=== PATIENT | male | born 1940 | race Caucasian/White ===

== ENCOUNTER 2022-02-03 16:17 | Emergency (ER) | payer MEDICARE, SELFPAY ==
[2022-02-03 16:20] VITALS: BP 162/72; PULSE 62; RESP 18; TEMP 36.6; O2SAT 94
[2022-02-03 17:19] LABS: Strep Group A RT-PCR Negative (Negative)
--- NOTE | 2022-02-03 17:21 | PC.NURSE ---
explained wait time related to covid testing. pt anxious and wanting to leave. explained again wait time til completion of testing. pt returned to room
[2022-02-03 17:32] LABS: Influenza A QL RT-PCR Negative (Negative); Influenza B QL RT-PCR Negative (Negative); SARS-CoV-2 RNA PCR Positive (Negative)
--- NOTE | 2022-02-03 17:49 | ED.URI ---
HPI - URI/Sore Throat General Chief Complaint: Upper Respiratory Infection Stated Complaint: fatigue, sore throat, runny nose Time Seen by Provider: 02/03/22 16:21 Source: patient and RN notes reviewed Mode of arrival: ambulatory Limitations: no limitations History of Present Illness MD elicited complaint: fever, cough and sore throat Onset (ago): day(s) (2) Consistency: progressively worsening Severity: mild Pain scale (0-10): 3 Able to tolerate fluids by mouth: Yes Exacerbating factors: nothing Relieving factors: nothing Associated symptoms: denies other symptoms Treatments prior to arrival: none Review of Systems Review of Systems: All systems reviewed & are unremarkable except as noted in HPI and below Constitutional: Constitutional: Reports no additional constitutional complaints Eyes: Eyes: Reports no additional eye complaints ENT: Reports system reviewed and no additional complaints, except as documented Cardiovascular: Cardiovascular: Reports no additional cardiovascular complaints Respiratory: Respiratory: Reports no additional respiratory complaints Gastrointestinal: Gastrointestinal: Reports no additional gastrointestinal complaints Musculoskeletal: Musculoskeletal: Reports no additional musculoskeletal complaints Integumentary/Breasts: Skin/Breast: Reports system reviewed and no additional complaints, except as docu Neurologic: Reports system reviewed and no additional complaints, except as documented Psychiatric: Psychiatric: Reports no additional psychiatric complaints Endocrine: Endocrine: Reports no additional endocrine complaints Hematologic/Lymphatic: Hematologic/Lymphatic: Reports no additional hematologic/lymphatic complaints Allergic/Immunologic: Allergic/Immunologic: Reports no additional allergic/immunologic complaints PMFSH Past Medical History Medical History COVID-19 Exam Const: General: no acute distress Nutritional Appearance: well nourished Orientation/consciousness: patient oriented x3 Limitations: no limitations HENMT: Head: normal to inspection Ears: external ears normal, TM's normal bilaterally and EAC's normal General nose exam: Normal external nose present and Normal nares present Face and sinus: normal facial exam and sinuses nontender Mouth: Yes Normal oral and palatal mucosa present and Yes moist mucous membranes Teeth and gingiva: dentition normal Other: mild pharyngeal redness Eyes: Conjunctivae: conjunctivae normal Pupils: Equal, round and reactive pupils present EOM: EOMs intact bilaterally Neck: Neck: normal visual inspection, no lymphadenopathy and no meningeal signs Chest: Chest palpation & inspection: normal inspection of the chest Resp: Effort & Inspection: normal respiratory effort Auscultation: clear to auscultation bilaterally Cardio: Rate: regular rate Rhythm: regular rhythm GI: GI Palp: Yes Soft to palpation and No Tenderness to palpation present (GI) Auscultation: normal bowel sounds : General: Yes bladder normal to palpation and Yes no CVA tenderness Back/Spine/Pelvis: Back: no CVA tenderness Skin: General skin exam: normal color Rashes: no rashes Wounds: no wounds Neuro: General: patient oriented x3, moves all extremities, no meningeal signs, no focal motor deficits and CN's II-XI intact bilaterally Cranial nerves: Yes Equal, round and reactive pupils present and Yes Nystagmus not present Speech: normal speech Gait exam (Neuro): Normal gait present Extrem: General: normal to inspection and no pedal edema Psych: Mental Status: mental status grossly normal Affect: normal affect Attitude: cooperative Course Course Emergency Course: stable pt, less painful. Reevaluation(s) Reevaluation #1: VSS Date: 02/03/22 Time: 16:58 Vital Signs Vital signs: Vital Signs Temperature 36.6 C 02/03/22 16:20 Pulse Rate 62 02/03/22 16:20 Respiratory Rate 18 02/03/22
--- NOTE | 2022-02-03 17:53 | PC.NURSE ---
pt remains asymptomatic , no fever, no cough, no respiratory distress.
== END 2022-02-03 18:00 | disposition home or self-care (01) ==
PROVIDERS: Emergency Provider Emergency Medicine
DX: U07.1 COVID-19 (principal); B34.9 Viral infection, unspecified
CPT/HCPCS: 87502; 87651; 99283; C9803; U0003; U0005

== ENCOUNTER 2023-05-02 12:11 | Emergency (ER) | payer MEDICARE, SELFPAY ==
[2023-05-02] VITALS (20 sets, daily range): BP systolic 135–190; BP diastolic 71–120; PULSE 48–74; RESP 14–26; TEMP 36.3; O2SAT 91–97
--- NOTE | ~2023-05-02 | XR_ITS ---
XR chest 1V portable 05/02/2023 13:40 Indication: Shortness of breath Procedure: AP portable chest Comparison: No prior studies for comparison. Findings: Status post median sternotomy for CABG. Cardiomegaly. Mild interstitial edema. No pleural e ffusion or pneumothorax. Impression: 1: Cardiomegaly with interstitial edema. Reviewed, dictated and finalized at location B. ISSIONS ANALYST Impression: 1: Cardiomegaly with interstitial edema.
--- NOTE | ~2023-05-02 | CT_ITS ---
EXAMINATION: CT brain wo con DATE: 05/02/2023 13:39 INDICATION: Dizziness. Headache. TECHNIQUE: Computed tomography (CT) of the head was performed without intravenous contrast. The dose- length product was 681.00 mGy-cm. Automated exposure control and iterative reconstruction technique w ere employed. COMPARISON: None FINDINGS: Brain parenchymal volume is decreased. There are scattered moderate periventricular and sub cortical white matter changes, most likely related to small vessel ischemic disease (microangiopathy) . No ventriculomegaly or midline shift. No acute intracranial hemorrhage, infarction, mass or mass ef fect. There is intracranial atherosclerosis. Paranasal sinuses and mastoids are pneumatized. No depre ssed skull fractures. There is a small extra-axial calcification along the left tentorium which may r epresent a small meningioma. No mass effect. IMPRESSION: 1. No acute intracranial abnormality. Reviewed, dictated and finalized at location B. 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
--- NOTE | 2023-05-02 12:50 | ECG_ITS ---
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
--- NOTE | 2023-05-02 12:52 | ED.DIZZY ---
HPI - Dizziness General Chief Complaint: Dizziness Stated Complaint: weakness Time Seen by Provider: 05/02/23 12:20 Source: patient Mode of arrival: ambulatory Limitations: no limitations History of Present Illness HPI Narrative: Patient is an 82 year old male with a significant PMH that presents today for dizzness. Patient states he woke up this morning and had dizziness. He was getting out of bed and says that he sat up and felt dizziness. He felt like the room was spinning. He says he has never had dizziness in the past. He does have an extensive heart history. He has a hx of a CABG and hx of afib. His afib is apparently controlled without medication. He does take eliquis for a blood thinner. He denies any SOB or chest pain. MD elicited complaint: dizziness and lightheadedness Onset (ago): hour(s) Timing: sudden onset Severity: mild Description: room spinning Context: change in body position History of similar symptoms: No Exacerbating factors: nothing Relieving factors: remaining still Associated symptoms: denies other symptoms Stroke scale total: 0 Related Data Home Medications Medication Instructions Recorded Confirmed apixaban 5 mg tablet (Eliquis) 5 mg PO BID 05/02/23 05/02/23 finasteride 5 mg tablet 5 mg PO DAILY 05/02/23 05/02/23 rosuvastatin 20 mg tablet 20 mg PO DAILY 05/02/23 05/02/23 sertraline 100 mg tablet 100 mg PO DAILY 05/02/23 05/02/23 solifenacin 10 mg tablet 10 mg PO DAILY 05/02/23 05/02/23 tamsulosin 0.4 mg capsule 0.4 mg PO DAILY 05/02/23 05/02/23 Allergies Allergy/AdvReac Type Severity Reaction Status Date / Time No Known Allergies Allergy Verified 05/02/23 12:50 Review of Systems Review of Systems: All systems reviewed & are unremarkable except as noted in HPI and below Constitutional: Constitutional: Reports as per HPI Eyes: Eyes: Reports no additional eye complaints ENT: Reports system reviewed and no additional complaints, except as documented Cardiovascular: Cardiovascular: Reports no additional cardiovascular complaints Respiratory: Respiratory: Reports no additional respiratory complaints Gastrointestinal: Gastrointestinal: Reports no additional gastrointestinal complaints Genitourinary: Genitourinary: Reports no additional male genitourinary complaints Musculoskeletal: Musculoskeletal: Reports no additional musculoskeletal complaints Integumentary/Breasts: Skin/Breast: Reports system reviewed and no additional complaints, except as docu Neurologic: Reports dizziness Psychiatric: Psychiatric: Reports no additional psychiatric complaints Endocrine: Endocrine: Reports no additional endocrine complaints Hematologic/Lymphatic: Hematologic/Lymphatic: Reports no additional hematologic/lymphatic complaints PMFSH Past Medical History Medical History COVID-19 Exam Const: General: healthy appearing Nutritional Appearance: well nourished Orientation/consciousness: patient oriented x3 HENMT: Head: normal to inspection Ears: TM's normal bilaterally Face/Nose/Sinus: Normal external nose present Face and sinus: normal facial exam Mouth: Yes Normal oral and palatal mucosa present Eyes: Conjunctivae: conjunctivae normal Pupils: Equal, round and reactive pupils present EOM: EOMs intact bilaterally Neck: Neck: normal visual inspection Chest: Chest palpation & inspection: normal inspection of the chest Resp: Effort & Inspection: normal respiratory effort Auscultation: clear to auscultation bilaterally Cardio: Rate: bradycardic Rhythm: abnormal rhythm Heart sounds: Murmur heart sound present systolic GI: Inspection: distended GI Palp: Yes Hernia present and Yes Palpable mass present Auscultation: normal bowel sounds Back/Spine/Pelvis: Back: no CVA tenderness Skin: General skin exam: normal color Rashes: no rashes Neuro: General: patient oriented x3 Cranial nerves: Yes Nystagmus not present Speech: no
[2023-05-02 13:10] LABS: Basophils Absolute Auto 0.02 K/mm3 (0.00-0.10); Basophils Percent Auto 0.3 % (0.0-1.0); Eosinophils Absolute Auto 0.06 K/mm3 (0.02-0.50); Hematocrit 43.4 % (37.0-46.0); Hemoglobin 14.1 g/dL (12.4-15.3); Immature Granulocyte Absolute 0.04 K/mm3 (0.00-0.00); Immature Granulocyte Percent A 0.7 % (0.0-0.0); Lymphocytes Absolute Auto 0.66 K/mm3 (1.10-4.50); Lymphocytes Percent Auto 10.8 % (18.0-42.0); Mean Corpuscular HGB Conc 32.5 g/dL (32.0-36.0); Mean Corpuscular Hemoglobin 30.8 pg (27.0-31.0); Mean Corpuscular Volume 94.8 fL (78.0-102.0); Monocytes Absolute Auto 0.42 K/mm3 (0.10-0.90); Monocytes Percent Auto 6.9 % (2.0-11.0); Neutrophils Absolute Auto 4.9 K/mm3 (1.7-7.2); Neutrophils Percent Auto 80.3 % (50.0-70.0); Platelet Count Result 148 K/mm3 (150-420); Red Blood Count 4.58 M/mm3 (4.70-6.10); Red Cell Distribution Width 13.5 % (11.6-14.4); White Blood Count 6.1 K/mm3 (4.8-10.8)
[2023-05-02 13:25] LABS: INR 1.1; Partial Thromboplastin Time 31.4 SEC (23.90-30.70); Prothrombin Time 12.1 Seconds (9.50-12.10)
[2023-05-02] MEDS: MECLIZINE HCL 25 MG TABLET 50 MG PO (13:25)
[2023-05-02 13:30] LABS: Lactic Acid Reflex 1.6 mmol/L (0.4-2.0)
[2023-05-02 13:32] LABS: Alanine Aminotransferase 28 U/L (16-63); Albumin Level 3.6 g/dL (3.4-5.0); Alkaline Phosphatase 116 U/L (46-116); Anion Gap 5 mmol/L (8-16); Aspartate Amino Transferase 23 U/L (15-37); Bilirubin,Total 0.8 mg/dL (0.00-1.00); Blood Urea Nitrogen 13 mg/dL (7-18); Calcium 8.8 mg/dL (8.5-10.1); Carbon Dioxide 28 mmol/L (21-32); Chloride 101 mmol/L (98-108); Estimated Glomerular Filt Rate > 60; Glucose 123 mg/dL (70-99); Magnesium 1.7 mg/dL (1.8-2.4); NT Pro B Type Natriuretic Pept 2196 pg/mL (0-450); Osmolality Calculated 279 mOsm/kg (285-295); Sodium 134 mmol/L (136-145); Total Protein 7.4 g/dL (6.4-8.2); Troponin I 36.6 ng/L (0.00-60.4)
[2023-05-02] MEDS: FUROSEMIDE INJ 40 MG/4 ML VIAL IV PUSH (14:55)
[2023-05-02] MEDS: MAGNESIUM SULF 2 GM/WATER 50ML 2 GM/50 ML BAG IVPB (14:57)
[2023-05-02] MEDS: ONDANSETRON INJ 4 MG/2 ML VIAL IV PUSH (14:58)
--- NOTE | 2023-05-02 15:02 | PC.NURSE ---
1450 pt standing to attempt to urinate, continues with dizziness. nauseated. dr lara notified. zofran order . 1503 pt states dry heeves, nausea subsided. dr lara in with pt discussing plan of care.
--- NOTE | 2023-05-02 15:20 | PC.NURSE ---
dr lara speaking with daughter jaquan ren on phone. pt insistant on going home after discussing plan of care with pt
[2023-05-02 15:53] LABS: Appearance Urine Clear (Clear); Bilirubin Urine Negative (Negative); Blood Urine Negative (Negative); Color Urine Light Yellow (Yellow); Glucose Urine UA Negative (Negative); Ketones Urine Negative (Negative); Leukocyte Esterase Ur Negative LEU/UL (Negative); Nitrate Urine Negative (Negative); Protein Urine Negative (Negative); Specific Grav Ur 1.015 (1.010-1.020); Urobilinogen Urine 0.2 mg/dL (0.2-1.0); pH Urine 6.5 (5.0-8.0)
[2023-05-02 16:29] LABS: Add Urine Microscopic? NO
== END 2023-05-02 15:49 | disposition home or self-care (01) ==
PROVIDERS: Emergency Provider Family Medicine
DX: H81.10 Benign paroxysmal vertigo, unspecified ear (principal); I50.9 Heart failure, unspecified; I48.91 Unspecified atrial fibrillation; Z79.01 Long term (current) use of anticoagulants; Z79.899 Other long term (current) drug therapy
CPT/HCPCS: 36415; 70450; 71045; 80053; 81003; 83605; 83735; 83880; 84484; 85025; 85380; 85610; 85730; 93005; 96365; 96375; 99284; A9270; J1940; J2405; J3475

== ENCOUNTER 2023-05-07 15:39 | Outpatient (RCR) | payer MEDICARE, SELFPAY ==
--- NOTE | 2023-05-07 17:04 | OPREHPOC ---
Outpatient Therapy Plan of Care This is a Multidisciplinary Plan of Care that may contain components documented by all disciplines (PT, OT, and ST.) PT Problem 1 PT Problem #1 Knowledge Deficit PT Goal 1 Goal 1. independent and compliant with HEP Target Visit 6 PT Problem 2 PT Problem #2 Impaired Functional Mobil PT Goal 1 Goal 1. no nystagmus or vertigo symptoms 2. 5x sit to stand to be performed in under 12 seconds with safe hand use 3. tinetti to display moderate fall risk or less 4. tug to be performed with least restrictive AD in 12 seconds or less 5. no falls reported Target Visit 12
--- NOTE | 2023-05-07 17:05 | PTOPEVAL1 ---
Assessment and note entered by JT File, PT Evaluation Information Assessment Status Evaluation Diagnosis vertigo, BPPV Onset 05/02/23 Subjective Information patient reports he woke up sander morning and was dizzy when he sat up. he reports he felt like he was drunk. he reports leaning side to side made it worse. he reports he had to use the zurita to walk to the restroom. he reports he has symptoms mostly now when getting up. he reports no symptoms with sitting. he reports he wnet to the ER for evalaution as he thought he was having a stroke. they worked him up and determined it was BPPV. he was sent home with meclizine with a referal to PCP to see PT. he reports he has been taking meclizine. he reports he is using a walker now which he was not using prior to his balance deficits. Reported Pain Level Pain Score 0: Self Report Assessment PT Clinical Summary mr. louise is an 82 yo man who presents to skilled PT services for evaluation and treatment of vestibular deficits/positional vertigo. patient was found to have no symptoms of BPPV today, but does display high fall risk per the 5x sit to stand, TUG, and the tinetti. he is on meclizine which may be maksing his vertigo symptoms. however , at this time, suggest patient continue skilled PT for unsteady balance and gait to improve his quality of life and decrease falls/risk of injury. Plan of Care Interventions Gait Training,Neuro Re-education,Patient/Caregiver Educati,Therapeutic Activities,Therapeutic Exercise PT Services Indicated Yes Treatment Frequency and 3x weekly for 12 visits Duration These treatments will address the objective and functional deficits as defined above. The patient will be advanced safely and appropriately in order for the patient to progress towards his/her prior level of function. Additional exercises will be introduced and as well as a comprehensive home exercise program upon discharge, if needed, ?to ensure carryover of functional gains achieved in the clinic. This treatment plan has been reviewed and agreement upon by the patient.
--- NOTE | 2023-06-06 13:50 | OPREHPOC ---
Outpatient Therapy Plan of Care This is a Multidisciplinary Plan of Care that may contain components documented by all disciplines (PT, OT, and ST.) PT Problem 1 PT Problem #1 Knowledge Deficit PT Goal 1 Goal 1. independent and compliant with HEP Target Visit 6 Progress Met PT Problem 2 PT Problem #2 Impaired Functional Mobil PT Goal 1 Goal 1. no nystagmus or vertigo symptoms. partially met 2. 5x sit to stand to be performed in under 12 seconds with safe hand use. met for time, but not safety 3. tinetti to display moderate fall risk or less. met 4. tug to be performed with least restrictive AD in 12 seconds or less. met 5. no falls reported. met Target Visit 12 Progress Partially Met
--- NOTE | 2023-06-06 13:52 | PTOPPROGNS ---
Assessment and note entered by JT File, PT Evaluation Information Assessment Status Progress Diagnosis vertigo, BPPV Onset 05/02/23 Subjective Information patient reports he feels a bit sluggish today. he reports he has low energy today. Assessment PT Clinical Summary mr. louise presents to skilled PT for his 10th skilled therapy visit today. he had no nystagmus at his last therapy visit. he displays improved time and balance on the TUG and tinetti. however, he continues to be unsafe with final transfer on 5x sit to stand test. he would benefit from continued skilled PT to address his remaining balance and safety deficits to achieve full goals for skilled PT. Plan of Care Interventions Gait Training,Neuro Re-education,Patient/Caregiver Educati,Therapeutic Activities,Therapeutic Exercise PT Services Indicated Yes Treatment Frequency and continue skilled PT per initial POC Duration These treatments will address the objective and functional deficits as defined above. The patient will be advanced safely and appropriately in order for the patient to progress towards his/her prior level of function. Additional exercises will be introduced and as well as a comprehensive home exercise program upon discharge, if needed, ?to ensure carryover of functional gains achieved in the clinic. This treatment plan has been reviewed and agreement upon by the patient.
--- NOTE | 2023-06-13 08:43 | PTOPDC ---
Assessment and note entered by JT File, PT Evaluation Information Assessment Status Discharge Diagnosis vertigo, BPPV Onset 05/02/23 Subjective Information patient reports he feels good today. he reports from time to time he still gets dizziness. he reports he has had no falls. he reports he is ready to be done with therapy. Reported Pain Level Pain Score 0: Self Report Assessment PT Clinical Summary mr. louise presents to skilled PT for his 12th skilled therapy visit today. as of this date, his therapy has consisted mostly of strengthening exercises, balance/proprioception activities, and the occassional CR for vertigo. his vertigo symptoms are inconsistent, and are not currently present. he has met nearly all goals for skilled PT as of this date. he will DC skilled PT, and continue with HEP independent at home. Plan of Care PT Services Indicated Yes
== END 2023-06-11 15:13 | disposition home or self-care (01) ==
LOC: CHSPT 15:39
DX: H81.13 Benign paroxysmal vertigo, bilateral (principal)
CPT/HCPCS: 95992; 97110; 97112; 97150; 97161; 97530

== ENCOUNTER 2023-10-25 16:40 | Emergency (ER) | payer MEDICARE, SELFPAY ==
[2023-10-25 16:40] VITALS: BP 154/92; PULSE 73; RESP 18; TEMP 36.3; O2SAT 93
--- NOTE | 2023-10-25 16:53 | ED.EAR ---
HPI - Ear Problem General Chief complaint: Ear Stated complaint: ringing in ears Time Seen by Provider: 10/25/23 16:50 Source: patient Mode of arrival: ambulatory Limitations: no limitations History of Present Illness HPI Narrative: 82-year-old male with a history CAD status post CABG, CHF, atrial fibrillation, dyslipidemia,, benign positional vertigo presents to the ER with -- tinnitus in both ears for close to an Ear. Patient has mildly decreased hearing. The patient has a history of benign positional vertigo for which he is on meclizine. the tinnitus gets extremely loud at times and resolved spontaneously no ear infection. No ear discharge. The patient does not have any focal neuro deficits. No fever or chills no upper respiratory symptoms MD Complaint: other ( tinnitus) Location: bilateral Duration: intermittent Severity: severe Relieving factors: nothing Exacerbating factors: nothing Discharge from ear: Reports no Associated symptoms ear: tinnitus Treatment prior to arrival: none Related Data Home Medications Medication Instructions Recorded Confirmed apixaban 5 mg tablet (Eliquis) 5 mg PO BID 05/02/23 05/02/23 finasteride 5 mg tablet 5 mg PO DAILY 05/02/23 05/02/23 rosuvastatin 20 mg tablet 20 mg PO DAILY 05/02/23 05/02/23 sertraline 100 mg tablet 100 mg PO DAILY 05/02/23 05/02/23 solifenacin 10 mg tablet 10 mg PO DAILY 05/02/23 05/02/23 tamsulosin 0.4 mg capsule 0.4 mg PO DAILY 05/02/23 05/02/23 Allergies Allergy/AdvReac Type Severity Reaction Status Date / Time No Known Allergies Allergy Verified 05/02/23 12:50 Review of Systems Review of Systems: All systems reviewed & are unremarkable except as noted in HPI and below Constitutional: Constitutional: Reports as per HPI and Reports no additional constitutional complaints Eyes: Eyes: Reports as per HPI and Reports no additional eye complaints ENT: Reports system reviewed and no additional complaints, except as documented and Reports as per HPI Comments: patient has decreased hearing. Vertigo and tinnitus Cardiovascular: Cardiovascular: Reports as per HPI and Reports no additional cardiovascular complaints Respiratory: Respiratory: Reports as per HPI and Reports no additional respiratory complaints Gastrointestinal: Gastrointestinal: Reports as per HPI and Reports no additional gastrointestinal complaints Genitourinary: Genitourinary: Reports no additional male genitourinary complaints and Reports as per HPI Musculoskeletal: Musculoskeletal: Reports no additional musculoskeletal complaints and Reports as per HPI Integumentary/Breasts: Skin/Breast: Reports system reviewed and no additional complaints, except as docu and Reports as per HPI Neurologic: Reports system reviewed and no additional complaints, except as documented and Reports as per HPI Psychiatric: Psychiatric: Reports no additional psychiatric complaints and Reports as per HPI Endocrine: Endocrine: Reports no additional endocrine complaints and Reports as per HPI Hematologic/Lymphatic: Hematologic/Lymphatic: Reports no additional hematologic/lymphatic complaints and Reports as per HPI Allergic/Immunologic: Allergic/Immunologic: Reports no additional allergic/immunologic complaints and Reports as per HPI [facility] [place] Past Medical History Medical History (Updated 10/25/23 @ 17:28 by Elian Krishnan MD) Atrial fibrillation CAD (coronary artery disease) CHF (congestive heart failure) COVID-19 Dyslipidemia Surgical History Surgical History (Updated 10/25/23 @ 17:23 by Elian Krishnan MD) Failed CABG (coronary artery bypass graft) Exam Narrative: blood pressure 154/92 Const: General: no acute distress Nutritional Appearance: well nourished Orientation/consciousness: patient oriented x3 Limitations: no limitations HENMT: Head: normal to inspection Ears: external ears normal Face/Nose/Sinus: Normal external nose present Face and sinus: normal facia
== END 2023-10-25 17:34 | disposition home or self-care (01) ==
LOC: CHSED 17:33
PROVIDERS: Emergency Provider Internal Medicine Critical Care Medicine
DX: H93.13 Tinnitus, bilateral (principal); I25.10 Atherosclerotic heart disease of native coronary artery without angina pectoris; I50.9 Heart failure, unspecified; I48.91 Unspecified atrial fibrillation; E78.5 Hyperlipidemia, unspecified; Z95.1 Presence of aortocoronary bypass graft; H81.10 Benign paroxysmal vertigo, unspecified ear; Z79.01 Long term (current) use of anticoagulants
CPT/HCPCS: 99281

== ENCOUNTER 2023-12-09 14:56 | Outpatient (RCR) | payer MEDICARE, SELFPAY ==
--- NOTE | 2023-12-09 16:06 | OPREHPOC ---
Outpatient Therapy Plan of Care This is a Multidisciplinary Plan of Care that may contain components documented by all disciplines (PT, OT, and ST.) PT Problem 1 PT Problem #1 Knowledge Deficit PT Goal 1 Goal 1. independent and compliant with HEP Target Visit 6 PT Problem 2 PT Problem #2 Impaired Strength PT Goal 1 Goal 1. 5/5 bilateral hip strength 2. 5/5 bilateral knee strength 3. 5/5 bilateral ankle strength Target Visit 12 PT Problem 3 PT Problem #3 Impaired Balance PT Goal 1 Goal 1. 5x sit to stand to be performed controlled and safely in 10 seconds or less 2. TUG to be performed in under 10 seconds with safe transfers 3. Tinetti to improve by 3 points or more Target Visit 12 PT Problem 4 PT Problem #4 Impaired Functional Mobil PT Goal 1 Goal 1. patient to complete 6 minute walk test with WW for 800ft or more without rest 2. patient to complete 2 minute walk test without AD for 300ft or more without rest Target Visit 12
--- NOTE | 2023-12-09 16:06 | PTOPEVAL1 ---
Assessment and note entered by JT File, PT Evaluation Information Assessment Status Evaluation ICD-10 Condition Codes (PT) Weakness R53.1 Onset 11/24/03 Subjective Information patient reports he feels he has continued to get weak since his last bout of therapy. he reports he continues to have dizziness off and on, but reports this is being treated with medications. he reports he is coming to therapy to get stronger, improve his endurance, and improve his balance. he reports he has no had any falls. he reports he does not use any AD at home, but owns a walker and brought it with him today. he reports he does ok walking, but has to do it in short burst due to being SOA. he reports he does have AFIB. he reports he is on medication for AFIB. Reported Pain Level Pain Score 0: Self Report Assessment PT Clinical Summary mr. louise is an 83 yo man who presents to skilled PT services for evaluation and treatment of generalized weakness and imbalance. he presents today with deficits in strength in his LE's, moderate fall risk per the tinetti, and decreased endurance with ambulation. continued skilled PT is indicated to improve his objective/functional deficits to progress towards return to prior level functional activity performance and quality of life. Plan of Care Interventions Gait Training,Neuro Re-education,Patient/Caregiver Educati,Therapeutic Activities,Therapeutic Exercise PT Services Indicated Yes Treatment Frequency and 3x weekly for 12 visits Duration These treatments will address the objective and functional deficits as defined above. The patient will be advanced safely and appropriately in order for the patient to progress towards his/her prior level of function. Additional exercises will be introduced and as well as a comprehensive home exercise program upon discharge, if needed, ?to ensure carryover of functional gains achieved in the clinic. This treatment plan has been reviewed and agreement upon by the patient.
--- NOTE | 2024-01-08 15:07 | PCPTNOTE ---
Patient cancelled session today. He notes he thought he was scheduled for next week.
--- NOTE | 2024-01-14 16:12 | OPREHPOC ---
Outpatient Therapy Plan of Care This is a Multidisciplinary Plan of Care that may contain components documented by all disciplines (PT, OT, and ST.) PT Problem 1 PT Problem #1 Knowledge Deficit PT Goal 1 Goal / Goal Update 1. independent and compliant with HEP Target Visit 6 Progress Met PT Problem 2 PT Problem #2 Impaired Strength PT Goal 1 Goal / Goal Update 1. 5/5 bilateral hip strength 2. 5/5 bilateral knee strength 3. 5/5 bilateral ankle strength Target Visit 12 PT Problem 3 PT Problem #3 Impaired Balance PT Goal 1 Goal / Goal Update 1. 5x sit to stand to be performed controlled and safely in 10 seconds or less. met 2. TUG to be performed in under 10 seconds with safe transfers 3. Tinetti to improve by 3 points or more Target Visit 12 Progress Partially Met PT Problem 4 PT Problem #4 Impaired Functional Mobil PT Goal 1 Goal / Goal Update 1. patient to complete 6 minute walk test with WW for 800ft or more without rest 2. patient to complete 2 minute walk test without AD for 300ft or more without rest. met Target Visit 12 Progress Partially Met
--- NOTE | 2024-01-14 16:14 | PTOPPROGNS ---
Assessment and note entered by JT File, PT Evaluation Information Assessment Status Progress ICD-10 Condition Codes (PT) Weakness R53.1 Onset 11/24/03 Subjective Information patient reports he feels good today. he reports he has no pain. he reports he gets fatigued with exercise and activities still. he reports he has a CT next week to evaluate his need for an aortic valve replacement. Assessment PT Clinical Summary mr. louise presents to skilled PT services for his 10th skilled PT visit. he displays improvement in transfer independence, endurance, and gait mechanics. he continues to display deficits in endurance and strength of the LE's. he has made partial progress towards goals, but lack full achievement of all goals. he would benefit from continued skilled PT to achieve his remaining unmet goals. Plan of Care Interventions Gait Training,Neuro Re-education,Patient/Caregiver Educati,Therapeutic Activities,Therapeutic Exercise PT Services Indicated Yes Treatment Frequency and continue skilled PT per initial POC Duration These treatments will address the objective and functional deficits as defined above. The patient will be advanced safely and appropriately in order for the patient to progress towards his/her prior level of function. Additional exercises will be introduced and as well as a comprehensive home exercise program upon discharge, if needed, ?to ensure carryover of functional gains achieved in the clinic. This treatment plan has been reviewed and agreement upon by the patient.
--- NOTE | 2024-01-21 16:05 | OPREHPOC ---
Outpatient Therapy Plan of Care This is a Multidisciplinary Plan of Care that may contain components documented by all disciplines (PT, OT, and ST.) PT Problem 1 PT Problem #1 Knowledge Deficit PT Goal 1 Goal / Goal Update 1. independent and compliant with HEP Target Visit 6 Progress Met PT Problem 2 PT Problem #2 Impaired Strength PT Goal 1 Goal / Goal Update 1. 5/5 bilateral hip strength 2. 5/5 bilateral knee strength 3. 5/5 bilateral ankle strength Target Visit 12 Progress Met PT Problem 3 PT Problem #3 Impaired Balance PT Goal 1 Goal / Goal Update 1. 5x sit to stand to be performed controlled and safely in 10 seconds or less. met 2. TUG to be performed in under 10 seconds with safe transfers. not met 3. Tinetti to improve by 3 points or more Target Visit 12 Progress Partially Met PT Problem 4 PT Problem #4 Impaired Functional Mobil PT Goal 1 Goal / Goal Update 1. patient to complete 6 minute walk test with WW for 800ft or more without rest. not met 2. patient to complete 2 minute walk test without AD for 300ft or more without rest. met Target Visit 12 Progress Partially Met
--- NOTE | 2024-01-21 16:05 | PTOPDC ---
Assessment and note entered by JT File, PT Evaluation Information Assessment Status Discharge ICD-10 Condition Codes (PT) Weakness R53.1 Onset 11/24/03 Subjective Information patient reports he feels good today. he has had no falls. he reports he is not using any AD. he reports he still struggles with his endurance due to his heart, and reports his foot worker is trying to determine if he needs a new heart valve. Reported Pain Level Pain Score 0: Self Report Assessment PT Clinical Summary mr. louise presents to skilled PT services for his 12th skilled PT visit today. he displays improved TUG and 5x sit to stand time, improved tinetti balance, and ambulates without an AD. however, he is limited in endurance due to his breathing/cv status. he will DC skilled PT today, continue with independent HEP, and follow up with foot worker regarding needs for a new heart valve. Plan of Care PT Services Indicated Yes
== END 2024-01-21 16:23 | disposition home or self-care (01) ==
LOC: CHSPT 14:56
DX: M62.81 Muscle weakness (generalized) (principal); R42 Dizziness and giddiness
CPT/HCPCS: 97110; 97112; 97150; 97161

== ENCOUNTER 2024-07-02 11:00 | Outpatient (RCR) | payer MEDICARE, SELFPAY | END 2024-07-05 16:04 | disposition home or self-care (01) | PROVIDERS: Visit Provider Nuclear Medicine Nuclear Cardiology | DX: Z95.2 Presence of prosthetic heart valve (principal) | CPT/HCPCS: 93798 ==

== ENCOUNTER 2024-08-21 18:37 | Emergency (ER) | payer MEDICARE, SELFPAY ==
--- OUTSIDE RECORDS SUMMARY | 2024-08-21 18:39 | XMS_ITS | Clinical Summary ---
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 Gender Identity Not on file Sexual Orientation Not on file Plan of Treatment Health Maintenance Due Date Last Done Comments DTaP, Tdap and Td Vaccines ( 1 - Tdap) 11/15/1958 Zoster Vaccines (1 of 2) 11/15/1989 Pneumococcal Vaccine: 65+ Ye ars (1 of 1 - PCV) 11/15/2004 RSV Immunization or 60+ Years (1 - 1-dose 75+ series) 11/15/2014 COVID-19 Vaccine ( - 2023-2 5 season) 2024 Meningococcal B Vaccine Aged Out No l onger eligible based on patient's age to complete this topic Meningococcal Vaccine Aged Out No bernard siri eligible based on patient's age to complete this topic RSV Immunizations Under 20 Months Aged Out No longer eligible based on patient's age to complete this topic
--- OUTSIDE RECORDS SUMMARY | 2024-08-21 18:39 | XMS_ITS | Clinical Summary ---
Author Organization [facility] Address [address] [place] [address] Phone Care Team Providers Care Upholstery Mechanic Name Role Phone Carson Cardenas MD Primary Care Provider [phone] Allergies No known active allergies Medications aspirin (MULU) 81 mg Oral Tab Take by mouth one time only. Active SIMVASTATIN ORAL Take 20 mg by mouth daily. Active METOPROLOL SUCCINATE ORAL Take 25 mg by mouth daily at bedtime. Active LISINOPRIL ORAL Take 20 mg by mouth daily. Active FINASTERIDE ORAL Take 5 mg by mouth daily. Active SOLIFENACIN SUCCINATE (VESICARE ORAL) Take 5 mg by mouth daily. Active OMEGA-3 ACID ETHYL ESTERS (LOVAZA ORAL) Take 2 Gram by mouth 2 times daily. Active coenzyme Q10 (CO Q-10) Oral Cap Take 200 mg by mouth 2 times daily. Active niacin SR-lovastatin (ADVICOR) 500-20 mg Oral TM24 Take 2 Tabs by mouth daily at bedtime. Active ascorbic acid (VITAMIN C) 500 mg Oral Chew Take 500 mg by mouth daily. Active OTHER Vitamin B 12 dot SL od Active ALPRAZolam (XANAX) 0.25 mg tablet Take 0.25 mg by mouth 1 time daily as needed. 1 12/08/2018 Active Active Problems Problem Noted Date Diagnosed Date FH: colon cancer 08/06/2016 S/P colonoscopy with polypectomy 08/06/2016 Overview (08/06/2016): 08/06/16- small polyp removed. 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 Gender Identity Not on file Sexual Orientation Not on file Last Filed Vital Signs Vital Sign Reading Time Taken Comments Blood Pressure 101/84 02/12/2019 10:36 AM CDT Pulse 56 02/12/2019 10:36 AM CDT Temperature 36.9 C (98.4 F) 02/12/2019 10:24 AM CDT Respiratory Rate 18 02/12/2019 10:3 6 AM CDT Oxygen Saturation 92% 02/12/2019 10: 36 AM CDT Inhaled Oxygen Concentration - - Weight 104.6 kg (230 lb 9.6 oz) 02/12/2019 9:39 AM CDT Height 180.3 cm (5' 11 ) 02/12/2019 9:39 AM CDT Body Mass Index 32.16 02/12/2019 9:39 AM CDT Plan of Treatment Health Maintenance Due Date Last Done Comments DTAP/TDAP/TD VACCINES (1 - Tdap) 11/15/1959 PNEUMOCOCCAL VACCINE 50+ YEA RS (1 of 1 - PCV) 11/15/1989 ZOSTER VACCINE (1 of 2) 11/15/1989 RSV VACCINE (60+ or ) (1 - 1-dose 75+ series) 11/15/2014 COLORECTAL SCREENING 08/06/2021 08/06/2016, 07/30/2011, 07/30/2011 INFLUENZA VACCINE (#1) 2023 Insurance Advance Directives For more information, please contact: [phone] * Full Code (Latest Code Status on File) Date Activated Date Inactivated Comments 08/06/2016 6:53 AM 08/06/2016 10:43 AM * Full Code Date Activated Date Inactivated Comments 07/30/2011 8:21 AM 07/31/2011 2:01 AM Care Teams Upholstery Mechanic Relationship Specialty Start Date End Date Carsno Cardenas MD [address] [facility] [address] [address] PCP - General Internal Medicine 07/24/11
--- OUTSIDE RECORDS SUMMARY | 2024-08-21 18:39 | XMS_ITS ---
Author Organization [facility] Address [address] [place] [address] Care Team Providers Care Imaging System Administrator Name Role Phone Carson Cardenas Primary Care Provider Kelly Arreola MD, Richard Franco [phone] Encounters Encounter Location Date Provider Diagnosis [facility] [address] [place] [address] 01/06/2024 Richard Arreola MD PLAN OF TREATMENT No Information
--- OUTSIDE RECORDS SUMMARY | 2024-08-21 18:40 | XMS_ITS | Encounter Summary ---
Author Organization [facility] Address 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
--- OUTSIDE RECORDS SUMMARY | 2024-08-21 18:40 | XMS_ITS | Patient Health Record ---
Author Organization [facility] Address [address] [place] [address] Care Team Providers Care Gericare Aide Teacher Name Role Phone Carson Cardenas Primary Care Provider Kelly Arreola MD, [facility] [phone] ALLERGIES Allergen (clinical drug ingredient) Drug/Non Drug Allergy documented on EMR Reaction Allergy Type Onset Date Status Wasp Venom Unknown Drug Allergy Active REASON FOR REFERRAL No Information MEDICATIONS Medication SIG (Take, Route, Fr equency, Duration) Notes Start Date End Date Status Furosemide Active Fluticasone-Salmeterol Active Finasteride Active Aspirin 81 Active Apixaban Active Tamsulosin HCl Activ e Albuterol Active Solifenacin Succinate Active Sertraline HCl Activ e Rosuvastatin Calcium Active Potassium Chloride A ctive Multivitamin Active SOCIAL HISTORY Tobacco Use: Social History Observation Description Date Details (start date - stop date) Former Smoker NA - NA Sex Assigned At : Social History Observation Description Sex Assigned At Unknown Tobacco Use: Question Answer Notes Patient is a: former smoker Alcohol screening: Question Answer Notes Did you have a drink contain ing alcohol in the past year? Yes How often did you have a dri nk containing alcohol in the past year? Two to four times a month (2 points) How many drinks did you have on a typical day when you were drinking in the past year? 1 or 2 (0 points) How often did you have six o r more drinks on one occasion in the past year? Never (0 points) Points 2 Interpretation Negative PROBLEMS Problem Type ICD Code Onset Dates Problem Status W/U Status Risk SNOMED Code Notes Problem Carpal tunnel syndrome, right upper limb (G56.01) Active confirmed 533379633522315 Problem Trigger finger, right index finger (M65.321) Active confirmed 369023777 Problem Trigger finger, right middle finger (M65.331) Active confirmed 906159383 VITAL SIGNS Height 71 in 01/06/2024 Weight 206 lbs 01/06/2024 BMI 28.73 kg/m2 01/06/2024 Encounters Encounter Location Date Provider Diagnosis [facility] [address] [address], [place] [address] 01/06/2024 Richard Arreola MD Carpal tunnel syndrome, right upper limb G56.01 ; Trigger finger, right index finger M65.321 and Trigger finger, right middle finger M65.331 [facility] [address] [facility] [address], [place] [address] 01/06/2024 Richard Arreola MD ASSESSMENTS Encounter Date Diagnosis Assessment Notes Treatment Notes Treatment Clinical Notes 01/06/2024 Carpal tunnel syndrome, right upper limb (ICD-10 - G56.01) 01/06/2024 Trigger finger, right index finger (ICD-10 - M65.321) 01/06/2024 Trigger finger, right middle finger (ICD-10 - M65.331) PLAN OF TREATMENT No Information Insurance Providers Payer Name Payer Address Payer Phone Subscriber Number Group Number Insured Name Patient Relationship to Insured Coverage Start Date Coverage End Date [facility] Medicare Advantage PPO [address] [address] [place] [address] [id number] Isaiah Siddiqi Self - patient is the insured MEDICAL (GENERAL) HISTORY Medical History History ICD Code heart attack Atrial fibrillation high cholesterol hypertension urologic problems melanoma heart disease Surgical History Surgery Date(Month/Year) hernia repair carpal tunnel release, right 5 bypass surgeries bicep repair
--- OUTSIDE RECORDS SUMMARY | 2024-08-21 18:40 | XMS_ITS | Encounter Summary ---
Author Organization [facility] Address [address] [place] [address] Care Team Providers Care Cheesemaking Laborer Name Role Phone Carson Cardenas MD Primary Care Provider [phone] Encounter Details Date Type Department Care Team (Late st Contact Info) Description 07/31/2005 Outpatient [facility] [address] 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
--- OUTSIDE RECORDS SUMMARY | 2024-08-21 18:40 | XMS_ITS | Encounter Summary ---
Author Organization [facility] Address [address] [place] [address] Care Team Providers Care Radio Engineer Name Role Phone Carson Cardenas MD Primary Care Provider [phone] Encounter Details Date Type Department Care Team (Late st Contact Info) Description 09/16/2005 Outpatient [facility] [address] [facility] 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
--- OUTSIDE RECORDS SUMMARY | 2024-08-21 18:40 | XMS_ITS ---
Author Organization [facility] Address [address] [place] [address] Care Team Providers Care [employer] Principal Name Role Phone Carson Cardenas Primary Care Provider Kelly Arreola MD, [facility] [phone] ALLERGIES Allergen (clinical drug ingredient) Drug/Non Drug Allergy documented on EMR Reaction Allergy Type Onset Date Status Wasp Venom Unknown Drug Allergy Active REASON FOR VISIT rt hand MEDICATIONS Medication SIG (Take, Route, Fr equency, Duration) Notes Start Date End Date Status Solifenacin Succinate Active Sertraline HCl Activ e Rosuvastatin Calcium Active Potassium Chloride A ctive Multivitamin Active Finasteride Active Aspirin 81 Active Apixaban Active Tamsulosin HCl Activ e Albuterol Active Furosemide Active Fluticasone-Salmeterol Active SOCIAL HISTORY Tobacco Use: Social History [...] syndrome, right upper limb (G56.01) Active confirmed [id number] Problem Trigger finger, right index finger (M65.321) Active confirmed 232142593 Problem Trigger finger, right middle finger (M65.331) Active confirmed 690506219 VITAL SIGNS Height 71 in 01/06/2024 Weight 206 lbs 01/06/2024 BMI 28.73 kg/m2 01/06/2024 Encounters Encounter Location Date Provider Diagnosis [facility] [address] [place] [address] 01/06/2024 Richard Arreola MD Carpal tunnel syndrome, right upper limb G56.01 ; Trigger finger, right index finger M65.321 and Trigger finger, right middle finger M65.331 ASSESSMENTS Encounter Date Diagnosis Assessment Notes Treatment Notes Treatment Clinical Notes 01/06/2024 Carpal tunnel syndrome, right upper limb (ICD-10 - G56.01) 01/06/2024 Trigger finger, right index finger (ICD-10 - M65.321) 01/06/2024 Trigger finger, right middle finger (ICD-10 - M65.331) PLAN OF TREATMENT No Information History and Physical Notes * HPI (History of Present Illness) Category Sub-Category Detail Notes Depression Screening PHQ-9 Little inte rest or pleasure in doing things: Not at all Feeling down, depressed, or hopeless: No t at all Trouble falling or staying asleep, or sl eeping too much: Not at all Feeling tired or having little energy: N ot at all Poor appetite or overeating: Not at all Feeling bad about yourself o r that you are a failure, or have let yourself or your family down: Not at all Trouble concentrating on thi ngs, such as reading the newspaper or watching television: Not at all Moving or speaking so slowly that other people could have noticed; or the opposite, being so fidgety or restless that you have been moving around a lot more than usual: Not at all Thoughts that you would be b irma off or of hurting yourself in some way: Not at all Total Score: 0
--- OUTSIDE RECORDS SUMMARY | 2024-08-21 18:40 | XMS_ITS | Encounter Summary ---
Author Organization [facility] Address [address] [place] [address] Care Team Providers Care Technical Support Associate Name Role Phone Carson Cardenas MD Primary Care Provider [phone] Encounter Details Date Type Department Care Team (Late st Contact Info) Description 08/12/2005 Outpatient [facility] [address] 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
--- OUTSIDE RECORDS SUMMARY | 2024-08-21 18:40 | XMS_ITS | Encounter Summary ---
Author Organization [facility] Address 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
--- OUTSIDE RECORDS SUMMARY | 2024-08-21 18:40 | XMS_ITS | Patient Health Record ---
Author Organization [employer] Address [address] [facility] [address] [place] [address] Care Team Providers Care Park Interpretive Ranger Name Role Phone Carson Cardenas MD Primary Care Provider Unavail able Rafael Jurado Unavailable [phone] Allergies No Known Allergies Reason For Referral No Information Medications Medication SIG (Take, Route, Frequency, Duration) Notes Start Date End Date Status Eliquis Active VESIcare Active Finasteride Active Metoprolol Succinate Active Simvastatin Active OTC/Vitamins Redding 3, Jayleen Krill Oil, Beet Root, Bromelain, Vit D3, Vit C, Vit B12, ASA, CoQ10, Turmeric Curcumin, Reaves Extract Active Tamsulosin HCl Activ e Social History Tobacco Use: Social History Observation Description Date Details (start date - stop date) Former Smoker NA - NA Tobacco Use/Smoking Question Answer Notes Are you a former smoker How long has it been since you last smoked? > 10 years Problems Problem Type SNOMED Code ICD Code Onset Dates Problem Status W/U Status Risk Notes Problem [id number] intermission coordinator (curre nt) use of anticoagulants (Z79.01) Active confirmed Problem [id number] Dysphagia (R13.10) Active confirmed Plan Of Treatment No Information Insurance Providers Payer Name Payer Address Payer Phone Subscriber Number Group Number Insured Name Patient Relationship to Insured Coverage Start Date Coverage End Date [facility] Medicare Advantage Ppo [address] [address] [place] [address] [id number] Isaiah Siddiqi Self - patient is the insured Medical (General) History Medical History History ICD Code Colon Polyps Hemorrhoids Diverticulosis Coronary Artery Disease Hypertension Hyperlipidemia Surgical History Surgery Date(Month/Year) Colonoscopy (Dr. Dias) 07/2016 Hernia Umbilical Repair Quintuple Bypass Surgery Bicep Reattachment Tonsillectomy And Adenoidectomy Carpal Tunnel - Left Wrist
[2024-08-21 18:41] VITALS: BP 141/87; PULSE 55; RESP 20; TEMP 36.8; O2SAT 95
--- NOTE | 2024-08-21 18:48 | ED.GENADULT ---
HPI - General Adult General Chief complaint: Ear Stated complaint: ear ringing Time Seen by Provider: 08/21/24 18:48 Source: patient Mode of arrival: ambulatory Limitations: no limitations History of Present Illness HPI narrative: patient is 83-year-old male with a significant past medical history that presents today for polypharmacy questions and taking something for anxiety. Patient was already given is i.e. medication from his PCP use given Xanax. He just wanted to make sure it was okay to take the Xanax with medications he is taking. That is his only complaint today is just to ensure he can take all these medications together. I ensured on that this annex is safe to take with the medications he does take and to take it as the doctor prescribed, As needed at bedtime. Onset (ago): day(s) Relieving factors: none Exacerbating factors: none Associated symptoms: denies other symptoms Related Data Home Medications ?Medication ?Instructions ?Recorded ?Confirmed ?Last Taken ?Type apixaban 5 mg tablet (Eliquis) 5 mg PO BID 05/02/23 05/02/23 Unknown History finasteride 5 mg tablet 5 mg PO DAILY 05/02/23 05/02/23 Unknown History rosuvastatin 20 mg tablet 20 mg PO DAILY 05/02/23 05/02/23 Unknown History sertraline 100 mg tablet 100 mg PO DAILY 05/02/23 05/02/23 Unknown History solifenacin 10 mg tablet 10 mg PO DAILY 05/02/23 05/02/23 Unknown History tamsulosin 0.4 mg capsule 0.4 mg PO DAILY 05/02/23 05/02/23 Unknown History irbesartan 75 mg tablet 75 mg PO DAILY Hypertension 05/12/24 05/12/24 05/12/24 History Allergies Allergy/AdvReac Type Severity Reaction Status Date / Time No Known Allergies Allergy Verified 08/21/24 18:41 Review of Systems Review of Systems: All systems reviewed & are unremarkable except as noted in HPI and below Constitutional: Constitutional: Reports as per HPI Eyes: Eyes: Reports no additional eye complaints ENT: Reports system reviewed and no additional complaints, except as documented Cardiovascular: Cardiovascular: Reports no additional cardiovascular complaints Respiratory: Respiratory: Reports no additional respiratory complaints Gastrointestinal: Gastrointestinal: Reports no additional gastrointestinal complaints Genitourinary: Genitourinary: Reports no additional male genitourinary complaints Musculoskeletal: Musculoskeletal: Reports no additional musculoskeletal complaints Integumentary/Breasts: Skin/Breast: Reports system reviewed and no additional complaints, except as docu Neurologic: Reports system reviewed and no additional complaints, except as documented Psychiatric: Psychiatric: Reports no additional psychiatric complaints Endocrine: Endocrine: Reports no additional endocrine complaints Hematologic/Lymphatic: Hematologic/Lymphatic: Reports no additional hematologic/lymphatic complaints Allergic/Immunologic: Allergic/Immunologic: Reports no additional allergic/immunologic complaints [facility] Past Medical History Medical History Atrial fibrillation Dyslipidemia CHF (congestive heart failure) CAD (coronary artery disease) COVID-19 Surgical History Surgical History Failed CABG (coronary artery bypass graft) Exam Const: General: healthy appearing Nutritional Appearance: well nourished Orientation/consciousness: patient oriented x3 HENMT: Head: normal to inspection Ears: external ears normal Face/Nose/Sinus: Normal external nose present Face and sinus: normal facial exam Mouth: Yes Normal oral and palatal mucosa present Eyes: Conjunctivae: conjunctivae normal Pupils: Equal, round and reactive pupils present EOM: EOMs intact bilaterally Neck: Neck: normal visual inspection Chest: Chest palpation & inspection: normal inspection of the chest Resp: Effort & Inspection: normal respiratory effort Auscultation: clear to auscultation bilaterally Cardio: Rate: regular rate Rhythm: regular rhythm GI: GI Palp: Yes Soft to palpation Back/Spine/Pelvis: Back: no CVA tenderness Skin: General skin exam: normal color Rashes: no rashes Wounds: no wounds Neuro: General: patient oriented x3 Cranial nerves: Yes Nystagmus not present Speech: normal speech Gait exam (Neuro): Normal gait present Extrem: General: normal to inspection Psych: Mental Status: mental status grossly normal Affect: normal affect Attitude: cooperative Course Vital Signs Vital signs: Vital Signs Temperature 98.2 F 08/21/24 18:41 Pulse Rate 55 L 08/21/24 18:41 Respiratory Rate 20 08/21/24 18:41 Blood Pressure 141/87 H 08/21/24 18:41 Pulse Oximetry 95 08/21/24 18:41 Oxygen Delivery Room Air 08/21/24 18:41 Temperature 98.2 F 08/21/24 18:41 Pulse Rate 55 L 08/21/24 18:41 Respiratory Rate 20 08/21/24 18:41 Blood Pressure 141/87 H 08/21/24 18:41 Pulse Oximetry 95 08/21/24 18:41 Oxygen Delivery Room Air 08/21/24 18:41 Medical Decision Making MDM Narrative Medical decision making narrative: Patient is here literally just to talk about his medications I am sure they are all safe to take together. Have reviewed his medications and assured him that they are all safe to take together just make sure he takes them as prescribed by his primary care physician. That is only reason he is here and after answering his questions he is able to be discharged home. Differential Diagnosis Differential Diagnosis: pharmaceutical questions Medical Records Medical records reviewed: Yes I reviewed the external patient's medical records. Vital Signs Vital Signs: Vital Signs Temperature 98.2 F 08/21/24 18:41 Pulse Rate 55 L 08/21/24 18:41 Respiratory Rate 20 08/21/24 18:41 Blood Pressure 141/87 H 08/21/24 18:41 Pulse Oximetry 95 08/21/24 18:41 Oxygen Delivery Room Air 08/21/24 18:41 Temperature 98.2 F 08/21/24 18:41 Pulse Rate 55 L 08/21/24 18:41 Respiratory Rate 20 08/21/24 18:41 Blood Pressure 141/87 H 08/21/24 18:41 Pulse Oximetry 95 08/21/24 18:41 Oxygen Delivery Room Air 08/21/24 18:41 Lab Data Lab results reviewed: Yes I reviewed the patient's lab results. ABG Data Attestation: I personally reviewed and interpreted this ABG as follows: Discharge Plan Discharge Clinical Impression: Polypharmacy Patient Disposition: Home, Self-Care Condition: Stable Instructions: Medication List (ED) Additional Instructions: take all medications as prescribed by your primary care physician. Patient Language: Japanese Prescriptions: No Action sertraline 100 mg tablet 100 mg PO DAILY tamsulosin 0.4 mg capsule 0.4 mg PO DAILY finasteride 5 mg tablet 5 mg PO DAILY rosuvastatin 20 mg tablet 20 mg PO DAILY solifenacin 10 mg tablet 10 mg PO DAILY Eliquis 5 mg tablet 5 mg PO BID meclizine 50 mg tablet 50 mg PO BID PRN (Reason: dizziness) Qty: 30 0RF furosemide [Lasix] 40 mg tablet 40 mg PO DAILY Qty: 30 0RF irbesartan 75 mg tablet 75 mg PO DAILY Follow-up/Referrals: PHYSICIAN NOT ON STAFF,NONSTAFF [Primary Care Provider] - Time of Disposition: 18:54
--- OUTSIDE RECORDS SUMMARY | 2024-08-21 19:01 | XMS_ITS | Encounter Summary ---
Author Organization [facility] Address 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
--- OUTSIDE RECORDS SUMMARY | 2024-08-21 19:01 | XMS_ITS | Encounter Summary ---
Author Organization [facility] Address [address] [place] [address] Care Team Providers Care Cloth Colorer Name Role Phone Carson Cardenas MD Primary Care Provider [phone] Encounter Details Date Type Department Care Team (Late st Contact Info) Description 08/12/2005 Outpatient [facility] [address] [facility] 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
--- OUTSIDE RECORDS SUMMARY | 2024-08-21 19:01 | XMS_ITS | Encounter Summary ---
Author Organization [facility] Address 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
--- OUTSIDE RECORDS SUMMARY | 2024-08-21 19:01 | XMS_ITS | Clinical Summary ---
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
--- OUTSIDE RECORDS SUMMARY | 2024-08-21 19:01 | XMS_ITS | Clinical Summary ---
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 [address] [address] PCP - General Internal Medicine 07/24/11
--- OUTSIDE RECORDS SUMMARY | 2024-08-21 19:01 | XMS_ITS | Encounter Summary ---
Author Organization [facility] Address [address] [place] [address] Care Team Providers Care Belt Polisher Name Role Phone Carson Cardenas MD Primary Care Provider [phone] Encounter Details Date Type Department Care Team (Late st Contact Info) Description 09/16/[address] [facility] [address] 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
--- OUTSIDE RECORDS SUMMARY | 2024-08-21 19:01 | XMS_ITS | Encounter Summary ---
Author Organization [facility] Address [address] [place] [address] Care Team Providers Care Carding Machine Feeder Name Role Phone Carson Cardenas MD Primary Care Provider [phone] Encounter Details Date Type Department Care Team (Late st Contact Info) Description 07/31/2005 Outpatient [facility] [address] [facility] 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
== END 2024-08-21 19:27 | disposition home or self-care (01) ==
PROVIDERS: Emergency Provider Family Medicine
DX: Z79.899 Other long term (current) drug therapy (principal); I25.10 Atherosclerotic heart disease of native coronary artery without angina pectoris; I48.91 Unspecified atrial fibrillation; E78.5 Hyperlipidemia, unspecified; I50.9 Heart failure, unspecified
CPT/HCPCS: 99283